=== PATIENT | female | born 1950 | race Asian ===

== ENCOUNTER 2017-07-23 10:33 | Emergency (ER) | payer MEDICAID ==
[~2017-07-23] VITALS: Ht 160 cm; Wt 58.0 kg
[2017-07-23 12:01] VITALS: BP 120/70
== END 2017-07-23 12:05 | disposition home or self-care (01) ==
LOC: EMS 10:33
DX: K04.7 Periapical abscess without sinus (principal)
CPT/HCPCS: 99283

== ENCOUNTER 2017-07-27 10:19 | Emergency (ER) | payer MEDICAID ==
[~2017-07-27] VITALS: Ht 160 cm; Wt 59.0 kg
[2017-07-27 11:49] LABS: APPEARANCE,URINE CLEAR (CLEAR); GLUCOSE, URINE (UA) NEGATIVE (NEGATIVE); KETONES,URINE NEGATIVE (NEGATIVE); LEUKOCYTE ESTERASE ,URINE NEGATIVE (NEGATIVE); OCCULT BLOOD,URINE TRACE (NEGATIVE); PROTEIN,URINE NEGATIVE (NEGATIVE)
[2017-07-27 11:56] LABS: RBC,URINE 0-2 /HPF (0-2); SQUAMOUS EPITHELIAL CELL,UR Few /LPF (None Seen); WBC,URINE None Seen /HPF (0-5)
[2017-07-27 13:48] VITALS: BP 124/75
== END 2017-07-27 13:51 | disposition home or self-care (01) ==
LOC: EMS 10:19
DX: N28.1 Cyst of kidney, acquired (principal)
CPT/HCPCS: 76770; 99285

== ENCOUNTER 2017-07-28 10:17 | Emergency (ER) | payer MEDICAID ==
[~2017-07-28] VITALS: Ht 162.6 cm; Wt 63.0 kg
[2017-07-28 10:55] VITALS: BP 118/73
== END 2017-07-28 11:54 | disposition home or self-care (01) ==
LOC: EMS 10:18
DX: N28.1 Cyst of kidney, acquired (principal); Z87.442 Personal history of urinary calculi
CPT/HCPCS: 99281

== ENCOUNTER 2017-08-02 10:33 | Emergency (ER) | payer MEDICAID ==
[~2017-08-02] VITALS: Ht 167.6 cm; Wt 71.8 kg
[2017-08-02 11:31] VITALS: BP 119/79
== END 2017-08-02 11:39 | disposition home or self-care (01) ==
LOC: EMS 10:35
DX: N28.1 Cyst of kidney, acquired (principal)
CPT/HCPCS: 99281

== ENCOUNTER 2017-09-14 08:42 | Emergency (ER) | payer MEDICAID, OTHER ==
[~2017-09-14] VITALS: Ht 162.6 cm; Wt 56.8 kg
[2017-09-14] MEDS ORDERED: AMOX500C2 PO (08:48)
[2017-09-14] MEDS ORDERED: HYDR-4061 PO (08:48)
[2017-09-14] MEDS ORDERED: KETOROLAC TROMETHAMINE 30 MG/ML VIAL IM ONE (10:30)
[2017-09-14 10:50] VITALS: BP 111/73
== END 2017-09-14 11:03 | disposition home or self-care (01) ==
LOC: EMS 08:47
DX: K02.9 Dental caries, unspecified (principal)
CPT/HCPCS: 96372; 99283; J1885

== ENCOUNTER → 2017-10-29 | Outpatient (CLI) | payer OTHER ==
[~2017-10-29] MED LIST: AMOX500C2 PO; HYDR-4061 PO
[2017-10-29 14:15] LABS: APPEARANCE,URINE CLEAR (CLEAR); BILIRUBIN,URINE NEGATIVE (NEGATIVE); GLUCOSE, URINE (UA) NEGATIVE (NEGATIVE); KETONES,URINE NEGATIVE (NEGATIVE); LEUKOCYTE ESTERASE ,URINE NEGATIVE (NEGATIVE); NITRATE,URINE NEGATIVE (NEGATIVE); OCCULT BLOOD,URINE NEGATIVE (NEGATIVE); PH,URINE 7.5 (5.0-8.0); PROTEIN,URINE NEGATIVE (NEGATIVE); UROBILINOGEN,URINE 0.2 mg/dL (<=1.0)
[2017-10-29 15:20] LABS: CREATININE,URINE RANDOM 106.3 mg/dL (30.0-125.0); PROTEIN,URINE RANDOM 16 mg/dL (0-11.9)
== END | disposition home or self-care (01) ==
LOC: LABPV 12:02
PROVIDERS: ATTEND Hospitalist
DX: N28.1 Cyst of kidney, acquired (principal); R10.9 Unspecified abdominal pain; L65.9 Nonscarring hair loss, unspecified
CPT/HCPCS: 82570; 84156